=== PATIENT | male | born 1960 | race Caucasian/White ===

== ENCOUNTER 2018-11-06 05:21 | Inpatient (IN) ==
--- NOTE | 2018-10-21 15:00 | XRay Report ---
XR chest Pre-admission PA/Lat CLINICAL HISTORY: Preoperative chest COMPARISON STUDY: No previous studies for comparison. FINDINGS: The cardiac and mediastinal contours are normal. There is no evidence of focal pulmonary co nsolidation. There is no evidence of failure. No pleural effusions are visualized.[ There is a very r adiodense 1 cm density projected over the right lung apex. This is of uncertain etiology. IMPRESSION: No active disease in the chest. Electronically signed by: Adair Arenas M.D. 10/21/2018 2:58 PM
[2018-10-21 15:26] LABS: Appearance Urine Clear (Clear); Bilirubin Urine Negative (Negative); Blood Urine Negative (Negative); Color Urine Dark Yellow; Glucose Urine UA Negative (Negative); Ketones Urine Trace (Negative); Leukocyte Esterase Urine Negative (Negative); Nitrite Urine Negative (Negative); Protein Urine Negative (Negative); Specific Gravity Urine 1.027 (1.000-1.030); Urobilinogen Urine Negative (Negative)
--- NOTE | 2018-10-21 15:33 | Anesthesiology Consultation ---
Date of Service October 21, 2018 Assessment & Plan (1) Encounter for pre-operative examination: - No prior anesthesia/intubation records available. Chart Review Chart Review: Acceptable Risk for Surgery and Patient seen in Pre Admission Testing Consults Requested medical (Dr. Eli (10/31)) Patient was seen by PCP on 10/31 for preoperative evaluation. Per note, "This patient has completed a medical evaluation and physical examination preoperatively as requested. Medical problems as listed above are currently compensated. Medical clearance is approved." Note also states, "His chest x-ray shows a dense right upper lung lesion known to be available metal fragment present for 30 years. There is no risk or confirmation to general surgery/orthopedic surgery and anesthesia." Teaching & Discussion Pre-Anesthesia Teaching/Discussion Notes: Instructed NPO after midnight before surgery, except medications with 15 cc of water. Medication instructions provided according to the PAT guidelines. History Surgery Operation Date: 11/06/18 13:35 Proposed Procedures p Left Total Knee Arthroplasty - Juaquin Cuellar MD Height/Weight Height: 5 ft 11 in Weight: 123 kg Allergies Allergy/AdvReac Type Severity Reaction Status Date / Time No Known Allergies Allergy Unverified 10/15/18 11:16 Medications Home Medications Medication Instructions Recorded Confirmed Last Taken albuterol sulfate [Proventil HFA] 2 puff INHALATION QID PRN 10/15/18 10/15/18 Unknown budesonide-formoterol [Symbicort] 2 puff INHALATION UD PRN 10/15/18 10/15/18 Unknown diclofenac sodium 75 mg PO BID 10/15/18 10/15/18 10/15/18 duloxetine 60 mg PO QPM 10/15/18 10/15/18 10/14/18 losartan 50 mg PO QAM 10/15/18 10/15/18 10/15/18 modafinil [Provigil] 200 mg PO QAM 10/15/18 10/15/18 10/15/18 oxymorphone 20 mg PO BID 10/15/18 10/15/18 10/15/18 pravastatin 40 mg PO HS 10/15/18 10/15/18 10/14/18 trazodone 150 mg PO HS 10/15/18 10/15/18 10/14/18 Past Medical History Medical History Anxiety and depression Asthma Hyperlipidemia Hypertension Metal foreign body in upper extremity HAS HAD METAL IN CHEST FOR LONG TIME, WORKED IN [employer] (INJURY RELATED) Sciatica Sleep apnea CPAP Spinal stenosis Exercise / Class Metabolic Activity III < 4 Walking/Shop/Light housework (Limited due to pain. Able to climb FOS with difficulty. Denies CP or SOB. ) Past Surgical History Surgical History History of arthroscopy of left knee History of arthroscopy of right knee History of colonoscopy History of foot surgery HEEL BILATERAL History of hand surgery LEFT History of hernia surgery X2 OR 3 Past Anesthesia History No Hx of Anesthesia Complications and No Family Hx of Anesthesia Complications History of PONV No Hx of PONV and Hx of Motion Sickness ([place]) Social History Smoking Status: Never smoker Do You Dip or Chew Tobacco: Yes (1 CAN PER WEEK - ADVISED NPO) Hx Alcohol Use: Yes Alcohol type: beer alcohol intake frequency: a few times a month Alcohol Intake Frequency Comment: SOCIAL Hx Substance Use: No substance use type: does not use Review of Systems Patient denies chest pain, shortness of breath, dyspnea on exertion, reflux, cough, palpitations. +Joint Pain (Left knee, Back) +Wheezing (Only when asthma is acting up) Physical Exam Vital Signs BP: 113/80 P: 65 R: 18 T: 98.4 SPO2: 97% on RA Constitutional + obese ENMT Thyromental Distance: > or= 3.5 Finger Breadths (3.5) Mallampati Class: III Neck normal visual inspection, trachea midline and + facial hair (Advised); neck extension not limited Respiratory normal respiratory effort Auscultation: lungs clear to auscultation bilaterally Cardiovascular Rate/Rhythm: regular rate and regular rhythm Heart Sounds: no murmur Vessels: no carotid bruit Neurologic moves all extremities Psychiatric Orientation: alert and oriented x 3 Testing Electrocardiogram Date: 10/21/18 Findings: + SB @ (56) Chest X-Ray Date: 10/21/18 Findings: + NAD FINDINGS: The cardiac and mediastinal contours are normal. There is no evidence of focal pulmonary consolidation. There is no evidence of failure. No pleural effusions are visualized. There is a very radiodense 1 cm density projected over the right lung apex. This is of uncertain etiology. IMPRESSION: No active disease in the chest. Laboratory Results 10/21/18 14:25 PT 10.9 Seconds (9.0-12.0) 10/21/18 14:25 INR 1.1 (0.9-1.1) 05/14/19 14:25 APTT 25.3 Seconds (21.0-31.0) 10/21/18 14:25 5.2 % (4.5-5.6) 10/21/18 14:25 Dark Yellow 10/21/18 14:25 Clear (Clear) 10/21/18 14:25 6.0 (4.5-7.5) 10/21/18 14:25 Ur Specific [place] 1.027 (1.000-1.030) 10/21/18 14:25 Negative (Negative) 10/21/18 14:25 Negative (Negative) 10/21/18 14:25 Trace (Negative) H 10/21/18 14:25 Negative (Negative) 10/21/18 14:25 Ur Leukocyte Esterase Negative (Negative) 10/21/18 14:25 Blood Type A Positive 10/21/18 14:25 Antibody Screen NEGATIVE 10/21/18 14:25 10/21/18 14:25 Urine Culture - Final Urine,Clean Catch No growth - less than 1,000 colonies/mL. Due to system error, not all headings showing up above. URINALYSIS NEGATIVE, HGBA1C 5.2% [facility] 10/17/18 WBC: 4.86 H/H: 15.0/46.0 PLATELETS: 205
--- NOTE | 2018-10-21 15:34 | PAT Medication Instructions ---
Medication Instructions Date of Service October 21, 2018 Home Medications albuterol sulfate [Proventil HFA] 2 puff INHALATION QID NEEDED budesonide-formoterol [Symbicort] 2 puff INHALATION NEEDED diclofenac sodium 75 mg PO BID duloxetine 60 mg PO QPM losartan 50 mg PO QAM modafinil [Provigil] 200 mg PO QAM oxymorphone 20 mg PO BID pravastatin 40 mg PO HS trazodone 150 mg PO HS ASK your surgeon for instructions diclofenac sodium 75 mg PO BID DO NOT take the morning of surgery losartan 50 mg PO QAM modafinil [Provigil] 200 mg PO QAM Take morning of surgery With a small sip of water, OTHERWISE NOTHING TO EAT OR DRINK AFTER MIDNIGHT: albuterol sulfate [Proventil HFA] 2 puff INHALATION QID NEEDED budesonide-formoterol [Symbicort] 2 puff INHALATION NEEDED oxymorphone 20 mg PO BID (STOP 4 HOURS BEFORE SURGERY) Take evening before surgery albuterol sulfate [Proventil HFA] 2 puff INHALATION QID NEEDED budesonide-formoterol [Symbicort] 2 puff INHALATION NEEDED duloxetine 60 mg PO QPM pravastatin 40 mg PO HS trazodone 150 mg PO HS Other Notes If you have any questions please call us at [phone] or [phone] or [phone] or [phone]
[2018-10-21 15:35] LABS: Albumin Level 3.8 gm/dl (3.4-5.0); Calcium 9.1 mg/dl (8.5-10.1); Creatinine Clr Calc Pharmacy 134.3 ml/min; Est GFR (African American) 114.6; Est GFR (Non-African American) 98.9; Potassium 4.6 mmol/L (3.5-5.1)
[2018-10-21 15:36] LABS: INR 1.1 (0.9-1.1); Partial Thromboplastin Ratio 0.9; Partial Thromboplastin Time 25.3 Seconds (21.0-31.0); Prothrombin Time 10.9 Seconds (9.0-12.0)
[2018-10-22 05:39] LABS: Estimated Average Glucose 103 mg/dl; Hemoglobin A1C 5.2 % (4.5-5.6)
--- NOTE | 2018-11-04 21:33 | History & Physical Report ---
Date of Service November 04, 2018 Assessment & Plan (1) Primary osteoarthritis of left knee: Patient has significant pain and dysfunction with normal daily activities due to his knee pain. He has failed conservative measures as above. Treatment options were discussed and he would like to proceed with left total knee arthroplasty. Risks, benefits, and alternatives to surgery including but not limited to infection, DVT pain, stiffness, need for revision surgery, damage to blood vessels, damaged nerves, PE, , we're discuss with the patient and they wish to proceed all questions were answered. Will plan on aspirin 81 mg bid for 30 days postoperatively for DVT prophylaxis. Plans will be for home with Home Health Physical Therapy upon discharge from the hospital. He will follow up in the office postoperatively. History of Present Illness Chief Complaint: Left knee pain Primary Care Provider: Alexis Eli 58 year old male with PMHx significant for HTN, high cholesterol, asthma, CLAUDY, chronic narcotic pain medication use, back pain presents with chronic left knee pain. He is having worsening left knee pain, which is affecting his daily activities. He has had previous physical therapy as well as visco injections and cortisone injections without meaningful relief. He has had previous arthroscopy and is having worsening symptoms. He would like to proceed with left total knee replacement. Patient denies headaches, sweats, fevers, chills, double vision, blurred vision, cough, sore throat, dysphagia, chest pain, sob, wheezing, n/v /d/c, numbness, tingling, fatigue, urinary symptoms, mood disorders. ROS positive for left pain and stiffness. Allergies Allergy/AdvReac Type Severity Reaction Status Date / Time No Known Allergies Allergy Unverified 10/15/18 11:16 Home Medications Home Medications Medication Instructions Recorded Confirmed Type albuterol sulfate [Proventil HFA] 2 puff INHALATION QID PRN 10/15/18 10/15/18 History budesonide-formoterol [Symbicort] 2 puff INHALATION UD PRN 10/15/18 10/15/18 History diclofenac sodium 75 mg PO BID 10/15/18 10/15/18 History duloxetine 60 mg PO QPM 10/15/18 10/15/18 History losartan 50 mg PO QAM 10/15/18 10/15/18 History modafinil [Provigil] 200 mg PO QAM 10/15/18 10/15/18 History oxymorphone 20 mg PO BID 10/15/18 10/15/18 History pravastatin 40 mg PO HS 10/15/18 10/15/18 History trazodone 150 mg PO HS 10/15/18 10/15/18 History Past Med/Surg History Medical History Anxiety and depression Asthma Hyperlipidemia Hypertension Metal foreign body in upper extremity HAS HAD METAL IN CHEST FOR LONG TIME, 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) Sciatica Sleep apnea CPAP Spinal stenosis Surgical History History of arthroscopy of left knee History of arthroscopy of right knee History of colonoscopy History of foot surgery HEEL BILATERAL History of hand surgery LEFT History of hernia surgery X2 OR 3 Social History Preferred Language: Chadian Communication Ability: Effective Routing Clerk Required: No Beliefs That Will Affect Care: Restoration Restoration Beliefs: EPISCOPAL Current Living Situation: Alone Other Information That Helps Us Care for You: Yes (PREFERS IN HOME POST OP THERAPY) Feels Safe at Home: Yes Smoking Status: Never smoker Do You Dip or Chew Tobacco: Yes (1 CAN PER WEEK - ADVISED NPO) Tobacco Cessation Education Requested by Patient: No Hx Alcohol Use: Yes Alcohol type: beer Hx Substance Use: No Review of Systems All systems reviewed & are unremarkable except as noted in HPI & below Physical Exam Constitutional: well developed and well nourished; no acute distress Eyes: PERRL, conjunctivae normal, anicteric sclerae ENMT: external ear and nose normal, oropharynx normal Neck: trachea midline, no thyromegaly Respiratory: normal respiratory effort, lungs clear to auscultation Cardiovascular: RRR, no murmur, no edema Musculoskeletal: Left knee: Mild effusion. Tenderness medial joint line with positive Elliot;s. Stable to valgus and varus stress test. Pain with patellar grind, crepitus with ROM at PF joint. ROM 0-135. Skin: no rashes, warm and dry Neurologic: patellar DTR's 2+ bilat, sensation intact Psychiatric: A+Ox3, euthymic affect Results & Data Laboratory Results Lab Results 10/21/18 10/21/18 10/21/18 Range/Units 14:25 14:25 14:25 PT 10.9 (9.0-12.0) Seconds INR 1.1 (0.9-1.1) APTT 25.3 (21.0-31.0) Seconds PTT Ratio 0.9 Sodium 139 (136-145) mmol/L Potassium 4.6 (3.5-5.1) mmol/L Chloride 106 (98-107) mmol/L Carbon Dioxide 29 (21-32) mmol/L Anion Gap 4.0 (3-11) BUN 16 (7-18) mg/dl Creatinine 0.82 (0.6-1.4) mg/dl Est Cr Clr Drug Dosing 134.3 ml/min Est GFR ( Amer) 114.6 Est GFR (Non-Af Amer) 98.9 BUN/Creatinine Ratio 20.0 (10-20) Glucose 87 (70-99) mg/dl Estimat Average Glucose mg/dl Hemoglobin A1c (4.5-5.6) % Calcium 9.1 (8.5-10.1) mg/dl Albumin 3.8 (3.4-5.0) gm/dl Urine Color Dark Yellow Urine Appearance Clear (Clear) Urine pH 6.0 (4.5-7.5) Ur Specific [place] 1.027 (1.000-1.030) Urine Protein Negative (Negative) Urine Glucose (UA) Negative (Negative) Urine Ketones Trace H (Negative) Urine Blood Negative (Negative) Urine Nitrite Negative (Negative) Urine Bilirubin Negative (Negative) Urine Urobilinogen Negative (Negative) Ur Leukocyte Esterase Negative (Negative) Blood Type Antibody Screen 10/21/18 10/21/18 Range/Units 14:25 14:25 PT (9.0-12.0) Seconds INR (0.9-1.1) APTT (21.0-31.0) Seconds PTT Ratio Sodium (136-145) mmol/L Potassium (3.5-5.1) mmol/L Chloride (98-107) mmol/L Carbon Dioxide (21-32) mmol/L Anion Gap (3-11) BUN (7-18) mg/dl Creatinine (0.6-1.4) mg/dl Est Cr Clr Drug Dosing ml/min Est GFR ( Amer) Est GFR (Non-Af Amer) BUN/Creatinine Ratio (10-20) Glucose (70-99) mg/dl Estimat Average Glucose 103 mg/dl Hemoglobin A1c 5.2 (4.5-5.6) % Calcium (8.5-10.1) mg/dl Albumin (3.4-5.0) gm/dl Urine Color Urine Appearance (Clear) Urine pH (4.5-7.5) Ur Specific [place] (1.000-1.030) Urine Protein (Negative) Urine Glucose (UA) (Negative) Urine Ketones (Negative) Urine Blood (Negative) Urine Nitrite (Negative) Urine Bilirubin (Negative) Urine Urobilinogen (Negative) Ur Leukocyte Esterase (Negative) Blood Type A Positive Antibody Screen NEGATIVE Diagnostic Findings Left knee radiographs: [id number] patellofemoral joint with joint space narrowing medial compartment. Osteophyte formation off patella and trochlea, and medial femoral condyle
[2018-11-06] MEDS ORDERED: CeleBREX 200 MG CAP PO SCH (06:00)
[2018-11-06] MEDS ORDERED: ACETAMINOPHEN 500 MG TAB PO SCH (06:00)
[2018-11-06] MEDS ORDERED: dexAMETHasone 4 MG TAB PO SCH (06:00)
[2018-11-06] MEDS ORDERED: FAMOTIDINE 20 MG TAB PO SCH (06:00)
[2018-11-06] MEDS ORDERED: METOCLOPRAMIDE HCL 10 MG TABLET PO SCH (06:00)
[2018-11-06] MEDS ORDERED: LR 500ML BOLUS, THEN 15ML/HR IV SCH (06:00)
[2018-11-06] MEDS ORDERED: TRANEXAMIC ACID 1,000 MG **IV Pre-op IV SCH (06:00)
[2018-11-06] MEDS ORDERED: ROPIVACAINE 0.5% HCL/PF 150 MG, BUPIVACAINE 0.5% MPF 30 ML, EPINEPHrine 30MG/30ML (OR U... INFIL SCH (06:00)
[2018-11-06] MEDS ORDERED: CEFAZOLIN 3000MG 65 ML IV SCH (06:00)
[2018-11-06] MEDS ORDERED: EPINEPHrine INJ 1 MG/ML AMP ONE (06:22)
[2018-11-06] MEDS ORDERED: BUPIVACAINE 0.5 % 5 MG/1 ML PF 10ML VIAL ONE (06:22)
[2018-11-06] MEDS ORDERED: ROPIVACAINE 0.5% 5 MG/ML 30 ML VIAL ONE (06:22)
[2018-11-06] MEDS ORDERED: TRANEXAMIC ACID 1,000 MG **IV Intra-op IV SCH (06:30)
--- NOTE | 2018-11-06 06:47 | History & Physical Bridge Note ---
Date of Service November 06, 2018 History & Physical Bridge Note I have examined the patient, reviewed the History & Physical and in the interval since the performance of the History & Physical I have noted the following changes of clinical significance: no changes noted
[2018-11-06] MEDS ORDERED: BACITRACIN INJ 50,000 UNIT VIAL ONE (07:02)
[2018-11-06] MEDS ORDERED: POVIDONE-IODINE OP SOLN 30 ML BTL ONE (07:02)
[2018-11-06] MEDS ORDERED: ORTHO JOINT ANESTHETIC ONE (07:02)
[2018-11-06] MEDS ORDERED: ONDANSETRON INJ 2 MG/ML 2 ML VIAL IV PRN ×2 (07:09→10:41)
[2018-11-06] MEDS ORDERED: MEPERIDINE HCL 25 MG/ML CARP IV PRN (07:09)
[2018-11-06] MEDS ORDERED: HYDROmorphone INJ 1 MG/ML SYRINGE IV PRN (07:09)
[2018-11-06] MEDS ORDERED: PHENYLEPHRINE 100MCG/ML 5ML SYR IV PRN (07:09)
[2018-11-06] MEDS ORDERED: fentaNYL citrate 100 MCG/2 ML VIAL IV PRN (07:09)
[2018-11-06] MEDS ORDERED: ATROPINE SULFATE 0.1 MG/ML 10ML SYR IV PRN (07:09)
[2018-11-06] MEDS ORDERED: ePHEDrine sulfate 50 MG/ML AMP IV PRN (07:09)
[2018-11-06] MEDS ORDERED: LABETALOL HCL IV 5 MG/ML 20ML IV PRN (07:09)
[2018-11-06] MEDS ORDERED: fentaNYL citrate 100 MCG/2 ML VIAL ONE (07:12)
[2018-11-06] MEDS ORDERED: MIDAZOLAM HCL 1 MG/ML 2ML VIAL ONE ×2 (07:12→07:48)
[2018-11-06 07:37] LABS: Hematocrit (blood only) 43.3 % (42-52); Hemoglobin 15.2 g/dL (14.0-18.0); Mean Corpuscular Volume 88.2 fL (80-100); Mean Platelet Volume 8.7 fL (7.4-10.4); Platelet Count 189 K/uL (130-400); RDW Coefficient of Variation 12.3 % (11.5-14.5); RDW Standard Deviation 39.2 fL (36.4-46.3); Red Blood Count 4.91 M/uL (4.7-6.1); White Blood Count 7.04 K/uL (4.8-10.8)
[2018-11-06 07:39] LABS: Mean Corpuscular Hgb Conc 35.1 g/dL (32-36)
[2018-11-06] MEDS ORDERED: ePHEDrine sulfate 50 MG/ML SYR ONE (08:09)
[2018-11-06] MEDS ORDERED: PROPOFOL IV EMULSION 10 MG/ML 20 ML VIAL IV ONE (08:09)
--- NOTE | 2018-11-06 08:55 | Operative Report ---
Post Operative Report Pre & Post Diagnosis Operation Date: 11/06/18 07:45 Pre-Op Diagnosis: Unilateral Primary Osteoarthritis, Left Knee Post-Op Diagnosis: Unilateral Primary Osteoarthritis, Left Knee Procedure Operation Date: 11/06/18 07:45 Actual Procedures p Left Total Knee Arthroplasty, Cemented(Left) - Juaquin Cuellar MD Surgeon Juaquin Cuellar MD Gis Instructor Magnus Zuñiga PA-C Estimated Blood Loss 20 Findings Consistent with Post-Op Diagnosis Specimens Bone and tissue Drains 2 Hemovac Anesthesia Type Spinal MAC Complications none Disposition Accompanied Patient To Recovery: No Disposition: Recovery Room Indications The patient is a 58-year-old male long-standing arthritic change of the left knee. [id number] in the patellofemoral compartment as well as medial com partment. He is failed conservative measures including injection, anti- inflammatories, rehab. He wishes to proceed with left total knee arthroplasty. Description of Procedure Risks benefits and alternatives of surgery including but not limited to infection, DVT, pain, stiffness, need for surgery, damage to blood vessels, damage to nerves or risks of anesthesia were discussed with the patient and they wished to proceed. The patient was identified and the laterality was confirmed and marked. They received a preoperative antibiotic as well as a spinal anesthetic and an abductor canal block. A well-padded tourniquet was applied and then the limb was prepped and draped in standard manner with ChloraPrep. The limb was exsanguinated and the tourniquet was inflated. I made a standard anterior incision. I sharply incised the skin then utilized Bovie electrocautery to achieve hemostasis. I made a medial parapatellar arthrotomy and mobilized the patella laterally. I then excised the anterior horns of the medial and lateral meniscus as well as the infrapatellar fat pad. I elevated a portion of the MCL off of the tibia. I then pinned into place a patient-matched distal femoral cutting guide and made my distal femoral resection. I then pinned into place the 5 in 1 femoral cutting guide. I made my anterior, posterior and chamfer cuts. I then excised the cruciates and the remaining portions of the menisci. I then pinned into place a patient- matched tibial cutting guide and made my tibial resection. I then pinned into place the tibial plate a utilizing alignment eunice to confirm rotation. I then cut for the post. Utilizing a lamina collar pointer and I then removed posterior osteophytes off the femur. I then placed a trial femur into position and cut for the trochlear component. I then sequentially trialed to size the polyethylene until there was good soft tissue balancing and range of motion. I then prepared the patella with a freehand cut utilizing sagittal saw. I sized and drilled for the patella. There was good tracking to the patella no lateral release was needed. All the trial components were removed. The deep tissues were anesthetized with an ortho mix solution. Then with Simplex HV with gentamicin cement, I cemented my definitive components. Definitive components, [facility] [employer] [facility] 2: Femur 4 Tibia 4 Poly 10 Patella 32 oval A betadine soak was performed. A deep drain was placed. The arthrotomy was closed with interrupted #1 Vicryl suture subcutaneous tissue was closed with interrupted 2-0 Vicryl suture. The skin was closed with with diogenes. An Acticoat and Jelena dressing were placed. Sterile dressings were applied. All needle and sponge counts were correct at the end of the procedure patient was transferred to the PACU in stable condition without apparent complication. The PA-C was necessary for assistance with procedure for assistance in positioning, prepping, draping, retraction and closure. I attest to the content of the Intraoperative Record and any orders documented therein. Any exceptions are noted below.
--- NOTE | 2018-11-06 10:02 | XRay Report ---
XR knee LT 2V routine CLINICAL HISTORY: Surgical Post Op COMPARISON: None FINDINGS: Alignment of the total left knee arthroplasty is anatomic. There is no fracture or unexpec colleen radiopaque foreign body. Drains and skin diogenes are present. IMPRESSION: Expected findings following total left knee arthroplasty. Electronically signed by: Buddy Lantigua M.D. 11/06/2018 10:00 AM
--- NOTE | 2018-11-06 10:05 | Anesthesiology Progress Note ---
Date of Service November 06, 2018 Anesthesia Post Procedure Vital Signs Vital Signs: Temp Pulse Pulse Resp BP Pulse Ox 11/06/18 10:00 57 L 16 122/75 94 11/06/18 09:50 58 L 16 130/69 99 11/06/18 09:43 37.0 C 69 16 114/72 99 11/06/18 05:40 36.8 C 68 18 116/73 96 Transfer of Care Handoff Completed per policy Notes Mental Status: alert / awake / arousable Patient Amnestic to Procedure: Yes Nausea / Vomiting: adequately controlled Pain: adequately controlled Airway Patency, RR, SpO2: stable & adequate BP & HR: stable & adequate Hydration State: stable & adequate Neuraxial Anesthesia: was administered and sensory block is resolving Anesthetic Complications: no major complications apparent and Pt Satisfied with anesthetic care
[2018-11-06] MEDS ORDERED: NALOXONE HCL 0.4 MG/1 ML VIAL/CARP IV PRN (10:41)
[2018-11-06] MEDS ORDERED: TAMSULOSIN HCL 0.4 MG CAP PO PRN (10:41)
[2018-11-06] MEDS ORDERED: ALBUTEROL HFA 8 GM INHALER INH PRN (10:41)
[2018-11-06] MEDS ORDERED: BUDESONIDE/FORMOTEROL FUMARATE 160/4.5 60 PUFFS/INHALER INH PRN (10:41)
[2018-11-06] MEDS ORDERED: MAGNESIUM HYDROXIDE SUSP 30 ML UDC PO PRN (10:41)
[2018-11-06] MEDS ORDERED: BISACODYL 10 MG SUPP PR PRN (10:41)
[2018-11-06] MEDS ORDERED: TRAMADOL HCL 50 MG TABLET PO PRN (10:41)
[2018-11-06] MEDS ORDERED: HYDROmorphone INJ 0.5 MG/0.5 ML SYR IV PRN (10:41)
[2018-11-06] MEDS: SODIUM CHLORIDE 0.9% 1000ML 1,000 ML IV SCH ×2 (12:33→22:10)
[2018-11-06] MEDS: ACETAMINOPHEN 500 MG TAB PO SCH ×2 (13:53→22:09)
[2018-11-06] MEDS: CEFAZOLIN 2000MG 2,000 MG/15 ML SYR IV SCH (16:20)
[2018-11-06] MEDS: DOCUSATE SODIUM 100 MG CAP PO SCH (20:22)
[2018-11-06] MEDS: CeleBREX 200 MG CAP PO SCH (20:23)
[2018-11-06] MEDS: ASPIRIN 81 MG ECTAB PO SCH (20:23)
[2018-11-06] MEDS ORDERED: TRAZODONE HCL 50 MG TAB PO SCH (21:00)
[2018-11-06] MEDS ORDERED: DULOXETINE HCL 60 MG CAP PO SCH (21:00)
[2018-11-06] MEDS ORDERED: SENNA 8.6 MG TAB PO SCH (21:00)
[2018-11-06] MEDS ORDERED: PRAVASTATIN SOD 40 MG TAB PO SCH (21:00)
[2018-11-07] MEDS: CEFAZOLIN 2000MG 2,000 MG/15 ML SYR IV SCH (00:10)
[2018-11-07] MEDS: ACETAMINOPHEN 500 MG TAB PO SCH (06:19)
[2018-11-07 07:09] LABS: Hematocrit (blood only) 38.9 % (42-52); Hemoglobin 13.5 g/dL (14.0-18.0); Mean Corpuscular Hgb Conc 34.7 g/dL (32-36); Mean Corpuscular Volume 87.2 fL (80-100); Mean Platelet Volume 9.2 fL (7.4-10.4); Platelet Count 203 K/uL (130-400); RDW Coefficient of Variation 12.4 % (11.5-14.5); RDW Standard Deviation 39.6 fL (36.4-46.3); Red Blood Count 4.46 M/uL (4.7-6.1); White Blood Count 14.47 K/uL (4.8-10.8)
--- NOTE | 2018-11-07 07:24 | Orthopedic Progress Note ---
Date of Service November 07, 2018 Assessment & Plan (1) Primary osteoarthritis of left knee: POD#1 left TKA. -Pain management -PT/OT -DVT prophylaxis -D/C planning home with home health therapy. Likely later today as long as PT goes well. Subjective Patient is POD#1 from left TKA. Doing well this AM, pain is well controlled. He notes significant improvement in knee pain compared to preoperatively. No other complaints. Denies chest pain, sob, dizziness. Review of Systems Review of Systems: All systems reviewed & are unremarkable except as noted in HPI & below Physical Exam Physical Exam: Dressing is c/d/i, hemovac in place. MICHELL intact. Toes are mobile. Sensation and n/v status are intact. No calf tenderness Results & Data Vital Signs (Past 12 Hours) Vital Signs Temp Pulse Resp BP Pulse Ox 11/07/18 03:29 36.9 C 77 16 133/77 96 11/06/18 23:12 36.7 C 81 16 134/74 96
[2018-11-07 07:42] LABS: Calcium 8.6 mg/dl (8.5-10.1); Creatinine Clr Calc Pharmacy 111.3 ml/min; Est GFR (African American) 100.7; Est GFR (Non-African American) 86.9; Potassium 3.7 mmol/L (3.5-5.1)
--- NOTE | 2018-11-07 07:55 | Anesthesiology Progress Note ---
Date of Service November 07, 2018 Anesthesia Post Procedure Vital Signs Vital Signs: Temp Pulse Pulse Resp BP Pulse Ox 11/07/18 03:29 36.9 C 77 16 133/77 96 11/06/18 23:12 36.7 C 81 16 134/74 96 11/06/18 15:35 36.5 C 64 17 122/75 95 11/06/18 13:32 36.6 C 68 16 118/77 95 11/06/18 12:29 36.4 C L 62 16 120/68 96 11/06/18 11:08 69 16 123/69 95 11/06/18 10:10 59 L 16 119/63 94 11/06/18 10:00 36.9 C 57 L 16 122/75 94 11/06/18 09:50 58 L 16 130/69 99 11/06/18 09:43 37.0 C 69 16 114/72 99 Pain Intensity Left Knee: Pain Intensity: 1 Notes Mental Status: alert / awake / arousable and participated in evaluation Nausea / Vomiting: adequately controlled Pain: adequately controlled Airway Patency, RR, SpO2: stable & adequate BP & HR: stable & adequate Hydration State: stable & adequate
[2018-11-07] MEDS ORDERED: MODAFINIL 100 MG TAB PO SCH (09:00)
[2018-11-07] MEDS ORDERED: MULTIVITAMIN TAB PO SCH (09:00)
[2018-11-07] MEDS ORDERED: LOSARTAN POTASSIUM 50 MG TAB PO SCH (09:00)
[2018-11-07] MEDS: ASPIRIN 81 MG ECTAB PO SCH (09:09)
[2018-11-07] MEDS: DOCUSATE SODIUM 100 MG CAP PO SCH (09:10)
[2018-11-07] MEDS: CeleBREX 200 MG CAP PO SCH (09:10)
--- NOTE | 2018-11-08 15:55 | Discharge Summary ---
Date of Service November 08, 2018 Admission HPI Per Admitting Provider 58 year old male with PMHx significant for HTN, high cholesterol, asthma, CLAUDY, chronic narcotic pain medication use, back pain presents with chronic left knee pain. He is having worsening left knee pain, which is affecting his daily activities. He has had previous physical therapy as well as visco injections and cortisone injections without meaningful relief. He has had previous arthroscopy and is having worsening symptoms. He would like to proceed with left total knee replacement. Patient denies headaches, sweats, fevers, chills, double vision, blurred vision, cough, sore throat, dysphagia, chest pain, sob, wheezing, n/v/d/c, numbness, tingling, fatigue, urinary symptoms, mood disorders. ROS positive for left pain and stiffness. Admission Exam Per Admitting Provider Constitutional: well developed and well nourished; no acute distress Eyes: PERRL, conjunctivae normal, anicteric sclerae ENMT: external ear and nose normal, oropharynx normal Neck: trachea midline, no thyromegaly Respiratory: normal respiratory effort, lungs clear to auscultation Cardiovascular: RRR, no murmur, no edema Musculoskeletal: Left knee: Mild effusion. Tenderness medial joint line with positive Elliot;s. Stable to valgus and varus stress test. Pain with patellar grind, crepitus with ROM at PF joint. ROM 0-135. Skin: no rashes, warm and dry Neurologic: patellar DTR's 2+ bilat, sensation intact Psychiatric: A+Ox3, euthymic affect Principal Diagnosis Left knee osteoarthritis Discharge Exam Constitutional well developed and well nourished; no acute distress Eyes PERRL, conjunctivae normal, anicteric sclerae ENMT external ear and nose normal, oropharynx normal Neck trachea midline, no thyromegaly Respiratory normal respiratory effort, lungs clear to auscultation Cardiovascular RRR, no murmur, no edema Skin no rashes, warm and dry Neurologic patellar DTR's 2+ bilat, sensation intact Psychiatric A+Ox3, euthymic affect Discharge Data Allergies Allergy/AdvReac Type Severity Reaction Status Date / Time No Known Allergies Allergy Verified 11/06/18 05:38 Consultations 11/06/18 10:41 Consult Case Management - Discharge Planning Routine Procedures Performed Operation Date: 11/06/18 07:45 Actual Procedures p Left Total Knee Arthroplasty, Cemented(Left) - Juaquin Cuellar MD Ordered Studies 11/06/18 05:00 US - OR guided needle placemen Routine Hospital Course (1) Primary osteoarthritis of left knee: Patient presented for same day admission following left total knee arthroplasty on . He tolerated procedure well. The Patient had an uneventful hospital course. Post-operatively, his activity was progressed and well tolerated. They participated in PT with ambulation distance of 280 feet. ROM of operative knee reached 92 degrees. Labs remained stable- lowest hemoglobin recorded: 13.5. Pain controlled on oral medications. Please refer to daily progress notes and PT notes for complete details. After exam on 11/07/18, patient was felt to be stable for discharge home with home health PT. His hemovac drain was left in to be removed by HH. Patient will f/u in the office in about 2 weeks for further evaluation including x-rays and incision check, sooner if having any issues or concerns. Lab Results 10/21/18 10/21/18 10/21/18 Range/Units 14:25 14:25 14:25 WBC (4.8-10.8) K/uL RBC (4.7-6.1) M/uL Hgb (14.0-18.0) g/dL Hct (42-52) % MCV (80-100) fL MCH (25-34) pg MCHC (32-36) g/dL RDW Std Deviation (36.4-46.3) fL RDW Coeff of Gavin (11.5-14.5) % Plt Count (130-400) K/uL MPV (7.4-10.4) fL PT 10.9 (9.0-12.0) Seconds INR 1.1 (0.9-1.1) APTT 25.3 (21.0-31.0) Seconds PTT Ratio 0.9 Sodium 139 (136-145) mmol/L Potassium 4.6 (3.5-5.1) mmol/L Chloride 106 (98-107) mmol/L Carbon Dioxide 29 (21-32) mmol/L Anion Gap 4.0 (3-11) BUN 16 (7-18) mg/dl Creatinine 0.82 (0.6-1.4) mg/dl Est Cr Clr Drug Dosing 134.3 ml/min Est GFR ( Amer) 114.6 Est GFR (Non-Af Amer) 98.9 BUN/Creatinine Ratio 20.0 (10-20) Glucose 87 (70-99) mg/dl Estimat Average Glucose mg/dl Hemoglobin A1c (4.5-5.6) % Calcium 9.1 (8.5-10.1) mg/dl Albumin 3.8 (3.4-5.0) gm/dl Urine Color Dark Yellow Urine Appearance Clear (Clear) Urine pH 6.0 (4.5-7.5) Ur Specific [place] 1.027 (1.000-1.030) Urine Protein Negative (Negative) Urine Glucose (UA) Negative (Negative) Urine Ketones Trace H (Negative) Urine Blood Negative (Negative) Urine Nitrite Negative (Negative) Urine Bilirubin Negative (Negative) Urine Urobilinogen Negative (Negative) Ur Leukocyte Esterase Negative (Negative) Hepatitis C Ab Screen (Neg) Blood Type Antibody Screen 10/21/18 10/21/18 11/06/18 Range/Units 14:25 14:25 07:28 WBC 7.04 (4.8-10.8) K/uL RBC 4.91 (4.7-6.1) M/uL Hgb 15.2 (14.0-18.0) g/dL Hct 43.3 (42-52) % MCV 88.2 (80-100) fL MCH 31.0 (25-34) pg MCHC 35.1 (32-36) g/dL RDW Std Deviation 39.2 (36.4-46.3) fL RDW Coeff of Gavin 12.3 (11.5-14.5) % Plt Count 189 (130-400) K/uL MPV 8.7 (7.4-10.4) fL PT (9.0-12.0) Seconds INR (0.9-1.1) APTT (21.0-31.0) Seconds PTT Ratio Sodium (136-145) mmol/L Potassium (3.5-5.1) mmol/L Chloride (98-107) mmol/L Carbon Dioxide (21-32) mmol/L Anion Gap (3-11) BUN (7-18) mg/dl Creatinine (0.6-1.4) mg/dl Est Cr Clr Drug Dosing ml/min Est GFR ( Amer) Est GFR (Non-Af Amer) BUN/Creatinine Ratio (10-20) Glucose (70-99) mg/dl Estimat Average Glucose 103 mg/dl Hemoglobin A1c 5.2 (4.5-5.6) % Calcium (8.5-10.1) mg/dl Albumin (3.4-5.0) gm/dl Urine Color Urine Appearance (Clear) Urine pH (4.5-7.5) Ur Specific [place] (1.000-1.030) Urine Protein (Negative) Urine Glucose (UA) (Negative) Urine Ketones (Negative) Urine Blood (Negative) Urine Nitrite (Negative) Urine Bilirubin (Negative) Urine Urobilinogen (Negative) Ur Leukocyte Esterase (Negative) Hepatitis C Ab Screen (Neg) Blood Type A Positive Antibody Screen NEGATIVE 11/07/18 11/07/18 11/07/18 Range/Units 06:40 06:40 06:40 WBC 14.47 H (4.8-10.8) K/uL RBC 4.46 L (4.7-6.1) M/uL Hgb 13.5 L (14.0-18.0) g/dL Hct 38.9 L (42-52) % MCV 87.2 (80-100) fL MCH 30.3 (25-34) pg MCHC 34.7 (32-36) g/dL RDW Std Deviation 39.6 (36.4-46.3) fL RDW Coeff of Gavin 12.4 (11.5-14.5) % Plt Count 203 (130-400) K/uL MPV 9.2 (7.4-10.4) fL PT (9.0-12.0) Seconds INR (0.9-1.1) APTT (21.0-31.0) Seconds PTT Ratio Sodium 141 (136-145) mmol/L Potassium 3.7 (3.5-5.1) mmol/L Chloride 110 H (98-107) mmol/L Carbon Dioxide 23 (21-32) mmol/L Anion Gap 9.0 (3-11) BUN 16 (7-18) mg/dl Creatinine 0.97 (0.6-1.4) mg/dl Est Cr Clr Drug Dosing 111.3 ml/min Est GFR ( Amer) 100.7 Est GFR (Non-Af Amer) 86.9 BUN/Creatinine Ratio 16.0 (10-20) Glucose 128 H (70-99) mg/dl Estimat Average Glucose mg/dl Hemoglobin A1c (4.5-5.6) % Calcium 8.6 (8.5-10.1) mg/dl Albumin (3.4-5.0) gm/dl Urine Color Urine Appearance (Clear) Urine pH (4.5-7.5) Ur Specific [place] (1.000-1.030) Urine Protein (Negative) Urine Glucose (UA) (Negative) Urine Ketones (Negative) Urine Blood (Negative) Urine Nitrite (Negative) Urine Bilirubin (Negative) Urine Urobilinogen (Negative) Ur Leukocyte Esterase (Negative) Hepatitis C Ab Screen Neg (Neg) Blood Type Antibody Screen Total Time Total Time Spent Total Time Spent (In Minutes): 20 Discharge Plan Discharge Items Patient Disposition: Home - Home Health Services Reason For Visit: Unilateral Primary Osteoarthritis, Left Knee Discharge Diagnosis: Left knee osteoarthritis Discharge Goals: Decrease discomfort and Improve function Activity: Per 'Additional Instructions' section Non-emergency contact: Surgeon Call non-emergency contact if: you have any medication questions, your pain is not controlled, your pain is concerning for you, you have a fever, your temperature is above 101, your wound has increased redness and your wound has increased drainage Follow-up/Referrals: Alexis Eli M.D. [Primary Care Provider] - Diet: Regular Addtl Provider Instructions: ACTIVITY RECOMMENDATIONS: SELF CARE INSTRUCTIONS AFTER TOTAL KNEE REPLACEMENT A. You may need to continue a physical therapy program after discharge from the hospital. There are several options available to you. Your doctor will assist you in selecting the best one for you. 1. An out-patient facility 2 to 3 times a week for therapy or home therapy. 2. Continue working on all exercises taught to you in the hospital. Your goals should be to increase bending of your knee to 90 degrees and beyond and to fully straighten your knee. B. You may progress at your own pace from walking with a walker or crutches to a cane; then to no assistive devices. C. Make walking a part of your daily routine. Be up as much as comfortable with rest periods throughout the day. Rest with leg elevation is very important. Use the ice wrap frequently for the first 3-4 weeks. D. There are no restrictions on activities. You may ride in a car, shop, participate in anchor operator and all social activities. E. Wear the long elastic stockings (CHU hose) 20 hours a day for 2 weeks after surgery. They can be removed several times a day for laundering and for a bath. F. You may shower, no tub baths until cleared by your doctor. SPECIAL CARE INSTRUCTIONS: VERY IMPORTANT TO READ AND REVIEW A. There are a few signs you need to watch for after you are home. Call [facility] if you notice any of the followin. Increased severe knee pain. Some pain is expected especially when you exercise. 2. Increased swelling in your leg or knee; pain or swelling of the calf muscle in either lower leg. 3. Any fluid drainage from the incision. 4. Shortness of breath or chest pain. B. Please call [facility] at if you have any concerns or questions about your operation or recovery. The doctor or his nurse will return your call promptly. C. You must take antibiotics before dental work, bladder, bowel or other surgery. Your doctor will provide you with a permanent care to carry describing this precaution. IMPORTANT: * REMEMBER TO TAKE ASPIRIN, 81 MG, TWICE DAILY FOR 4 WEEKS UNLESS OTHERWISE DIRECTED. THIS IS YOUR BLOOD THINNER. * HIGH RISK PATIENTS MAY BE PRESCRIBED A STRONGER BLOOD THINNER. THIS WILL BE PROVIDED AT DISCHARGE. * CALL IF INCREASED PAIN, REDNESS, DRAINAGE OR FEVER GREATER THAT 101. * WEAR CHU HOSE 20 HOURS PER DAY FOR 2 WEEKS. * This is a large suction dressing covering your incision. This will help pull any excess drainage from the wound and allow your incision to heal properly. You may shower with this if you can keep the unit outside of the shower. If any bleeding or leakage is noted please call your doctor's office. This will remain on your incision for 7 days and then should be removed. This can be done yourself or by the home nursing staff if applicable. The entire unit is disposable once removed. Once removed, keep incision clean and dry. If redness or drainage is noted, please call your surgeon. IF INCISION IS LEAKING THROUGH DRESSING, CALL THE OFFICE . FOLLOW UP VISIT: If appointment is not already scheduled: Please call [facility] to make a follow-up appointment for 2 weeks after your surgery at . Prescriptions: New acetaminophen [Tylenol Extra Strength] 500 mg Tablet 1,000 mg PO Q8 Qty: 60 RF: 0 celecoxib [Celebrex] 200 mg Capsule 200 mg PO BID Qty: 60 RF: 0 aspirin [Ecotrin Low Strength] 81 mg Tablet,Delayed Release (Dr/Ec) 81 mg PO BID Qty: 60 RF: 0 Continued losartan 50 mg Tablet 50 mg PO QAM RF: 0 pravastatin 40 mg Tablet 40 mg PO HS RF: 0 modafinil [Provigil] 200 mg Tablet 200 mg PO QAM RF: 0 trazodone 150 mg Tablet 150 mg PO HS RF: 0 albuterol sulfate [Proventil HFA] 90 mcg/actuation Hfa Aerosol Inhaler 2 puff INHALATION QID PRN (Reason: ASTHMA) RF: 0 duloxetine 60 mg Capsule,Delayed Release(Dr/Ec) 60 mg PO QPM RF: 0 oxymorphone 20 mg Tablet Extended Release 12 Hr 20 mg PO BID RF: 0 Symbicort 160-4.5 mcg/actuation Hfa Aerosol Inhaler 2 puff INHALATION UD PRN (Reason: ASTHMA) RF: 0 Discontinued diclofenac sodium 75 mg Tablet,Delayed Release (Dr/Ec) 75 mg PO BID RF: 0 Stand-Alone Forms: [employer], Opioid Pain [facility]/Other Patient Handouts: Surgery Prevent DVT After Discharge Orders: Discharge Order (Routine); Ordered 11/07/18 Ordered By: Magnus Zuñiga Admission Data Admit Date/Time: 11/06/18 09:51 Attending Provider: Juaquin Cuellar Admit Provider: Juaquin Cuellar Primary Care Provider: Alexis Eli Service: Surgical Services Other Interventions: Discharge Summary Assessment (RN) Last Done: 11/07/18 10:24 DC Date/Time DO NOT enter until pt leaves facility: 11/07/18 12:50
== END 2018-11-07 12:50 | disposition home health service (06) | DRG 470 ==
LOC: PAT 05:21 → ASU 05:21 → 3W 09:51